=== PATIENT | male | born 2000 | race Caucasian/White ===

== ENCOUNTER 2025-03-06 02:07 | Emergency (ER) | payer BC, SELFPAY ==
[2025-03-06 02:09] VITALS: BP 134/86
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
[2025-03-06] MEDS: AMOXIL 500 MG PO (03:56)
== END 2025-03-06 04:26 | disposition home or self-care (01) ==
LOC: EMR 02:07
PROVIDERS: EMERGENCY PHYSICIAN Emergency Medicine; FAMILY PHYSICIAN Internal Medicine
DX: S02.2XXA Fracture of nasal bones, initial encounter for closed fracture (principal); Y04.2XXA Assault by strike against or bumped into by another person, initial encounter; F41.9 Anxiety disorder, unspecified; F31.9 Bipolar disorder, unspecified
CPT/HCPCS: 99284; 70450; 70486